=== PATIENT | female | born 1955 | race American Indian/Alaskan Native ===

== ENCOUNTER 2016-03-07 10:32 | Outpatient (CLI) | payer MEDICARE ==
--- NOTE | 2016-03-07 12:17 | Mammography Report ---
LEFT DIGITAL DIAGNOSTIC MAMMOGRAM: 03/07/16 10:32:00 CLINICAL: For clip placement immediately status post ultrasound biopsy. COMPARISON:02/22/16 FINDINGS: A biopsy clip is now identified within the mass at 7:30 o'clock far posterior near the chest wall. IMPRESSION: Concordant clip placement status post ultrasound biopsy. BI-RADS CATEGORY: 4--Suspicious Pathology pending.
--- NOTE | 2016-03-07 13:56 | Ultrasound Report ---
ULTRASOUND GUIDED NEEDLE CORE BIOPSY LEFT BREAST WITH CLIP PLACEMENT: 03/07/16 CLINICAL: Left breast mass. COMPARISON :02/22/16 FINDINGS: The procedure was explained to the patient and informed consent was obtained. Ultrasound demonstrated the previously described mass at 7:30 o'clock near the chest wall.. I marked the breast with a felt tip marker and a time out was called. The skin was prepped with Betadine and anesthetized with 1% lidocaine. Needle core biopsy was performed through a tiny dermatotomy using ultrasound guidance, 2% lidocaine with epinephrine for deep anesthesia and a 14-gauge Achieve biopsy device. Imaging demonstrated satisfactory sampling. Four cores were obtained and placed in formalin. A clip was then placed within the mass. The patient tolerated the procedure well and there were no apparent complications. Hemostasis was achieved with gentle pressure and a sterile dressing was applied. A two view mammogram demonstrated satisfactory placement of the clip. She left the department in good condition and was given instructions for wound care and followup. IMPRESSION: Uncomplicated ultrasound guided needle core biopsy with clip placement left breast.
== END 2016-03-07 10:33 | disposition home or self-care (01) ==
LOC: SPVWC 10:32
PROVIDERS: ATTEND Hospitalist
DX: N63 Unspecified lump in breast (principal)
CPT/HCPCS: 19083; 88305; 88361; A4648; G0206

== ENCOUNTER 2016-04-17 07:45 | Outpatient (CLI) | payer MEDICARE | END 2016-04-17 07:46 | disposition home or self-care (01) | LOC: LABHHL 07:45 | PROVIDERS: ATTEND Surgery | DX: D36.0 Benign neoplasm of lymph nodes (principal) | CPT/HCPCS: 88305; 88361 ==

== ENCOUNTER 2016-05-02 07:03 | Outpatient (CLI) | payer MEDICARE ==
--- NOTE | 2016-05-02 15:56 | PET Report ---
PET/CT:05/02/16 07:03:00 CLINICAL: Newly diagnosed right breast cancer. RADIOPHARMACEUTICAL: 14.1 tomCi F18-FDG. COMPARISON: MRI Breast Bilateral 05/01/16 TECHNIQUE- Following intravenous injection of F-18 FDG and an approximately 60 minute uptake period, CT and PET images from the mid skull to the upper thighs were acquired with the patient in the fasted state. No contrast was administered. The CT protocol used for this PET CT study is designed for attenuation correction and anatomic localization of PET abnormalities. This contract implementation analyst CT is not desired to produce and cannot replace, [id number]-li-svm-art diagnostic CT scans with specific imaging protocols for different body parts and indications. Plasma glucose at the time of this test: 182g/dl. The standardized uptake values (SUV) are normalized to patient body weight and indicate the highest activity concentration (SUV max) in a given disease site. FINDINGS: Brain--Physiologic FDG uptake in the visualized regions of the brain. Neck--Physiologic FDG uptake . Chest--Physiologic FDG uptake in mediastinal blood pool and myocardium. a 3 cm FDG avid lower inner left breast mass with SUV 7.6. No other abnormal FDG uptake in the left breast. Lungs--No abnormal uptake. No pulmonary nodule or mass. Pleura/pericardium--No abnormal uptake. Thoracic nodes--No abnormal uptake. A 1.5 cm left axillary lymph node corresponds to the previously diagnosed metastatic lymph node that demonstrates minimal FDG uptake. Hepatobiliary--No abnormal uptake. Liver background SUV mean, as a reference for comparing FDG studies, is 4.8 . No liver mass. Spleen--No abnormal uptake. Pancreas--No abnormal uptake. Adrenal Glands--No abnormal uptake. Kidneys/Ureters/Bladder--No abnormal uptake. Abdominopelvic Nodes--No abnormal uptake. Bowel/Peritoneum/Mesentery--No abnormal uptake. No suspicious bone lesions. Pelvic organs--No abnormal uptake. Bones/Soft Tissues--No abnormal uptake. IMPRESSION- A 3 cm FDG avid left breast cancer and one biopsy-proven left axillary metastatic lymph node. No other disease is identified.
== END 2016-05-02 07:04 | disposition home or self-care (01) ==
LOC: PET 07:03
PROVIDERS: ATTEND Surgery
DX: C77.3 Secondary and unspecified malignant neoplasm of axilla and upper limb lymph nodes (principal); C50.411 Malignant neoplasm of upper-outer quadrant of right female breast; C50.312 Malignant neoplasm of lower-inner quadrant of left female breast
CPT/HCPCS: 78815; 82962; A9552

== ENCOUNTER 2016-10-29 09:51 | Outpatient (CLI) | payer MEDICARE ==
--- NOTE | 2016-10-29 10:33 | Mammography Report ---
LEFT DIGITAL DIAGNOSTIC MAMMOGRAM : 10/29/16 09:51:00 CLINICAL: Known breast cancer. Followup after chemotherapy. COMPARISON:09/22/15 and 03/07/16 FINDINGS: 1.3 cm irregular asymmetry is identified at the clip and known cancer in the posterior inner breast on the CC view.No mass or asymmetry is associated with a clip on the MLO view. IMPRESSION: Partial response to chemotherapy with near complete resolution of mass. BI-RADS CATEGORY: 6--Known Cancer ACR BI-RADS MAMMOGRAPHIC CODES: 0 = Needs additional imaging evaluation; 1 = Negative; 2 = Benign; 3 = Probably benign; 4 = Suspicious; 5 = Malignant; 6 = Known biopsy-proven malignancy COMMENT: 1. Dense breast tissue, i.e., adenosis, fibrocystic changes, etc., may obscure an underlying neoplasm. 2. Approximately 10% of cancers are not detected with mammography. 3. A negative mammography report should not delay biopsy if a clinically suspicious mass is present. COMMENT: Patient follow-up letters are generated by our [employer] application.
== END 2016-10-29 09:52 | disposition home or self-care (01) ==
LOC: SPVWC 09:51
PROVIDERS: ATTEND Surgery
DX: C50.312 Malignant neoplasm of lower-inner quadrant of left female breast (principal)
CPT/HCPCS: G0206-LT

== ENCOUNTER 2016-11-13 10:48 | Observation (INO) | payer MEDICARE ==
--- NOTE | 2016-11-13 09:25 | Operative Report ---
Operative Report Operative Report: Date of Service:November 13, 2016 Preoperative diagnosis: Left breast cancer of the lower inner quadrant Postoperative diagnosis: Same Procedure: Right total mastectomy; left total mastectomy with SLNB Surgeon: Tamiko Huertas MD [facility] Reverse Winder: Dr. Garza Anesthesia: General Findings: Radiograph specimen with left breast clip present; 2 SLNS identified and negative for malignancy Complications: None EBL: less than 50 cc Specimens: Right total mastectomy and left total mastectomy with SLNsx2 Disposition: PACU in good condition Indications for operative procedure: This is a 61-year-old lady with stage II left breast cancer of the lower inner quadrant. Patient recently completed neoadjuvant chemotherapy. Recommendations were to proceed with a partial mastectomy for left breast cancer and she wished to proceed with a bilateral total mastectomy. Patient with known left axillary toribio metastasis at the time of her diagnosis. Patient understood the possibility of proceeding with a lymph node dissection. Patient wished to proceed with a prophylactic right total mastectomy as well. Patient declined plastic reconstructive surgery. Procedure in detail: Anesthesia placed bilateral pectoral muscle block. Patient was taken to the operating room and was laid supine. General anesthesia was administered. Left nipple was injected with radioiosotope and methlene blue dye mixed with saline. Bilateral chest were prepped and draped in the normal sterile operative fashion. Gamma probed was inserted into the axilla for identification of sentinel lymph node biopsy. Mastectomy markings were made bilaterally. Attention was first taken towards the right breast, a skin incision was made with a 10 blade knife through the skin taken down to the subcutaneous tissues. First began with raising of the superior flap to the level of the clavicle and posteriorly to the pectoralis muscle, follwed by raising of the medial flap to the level of the sternum taking down posteriorly to pectoralis muscle, followed by raising of the lateral flap to the level of the latissimus dorsi muscle taken down posteriorly, then followed by raising of the inferior flap to the level of the inframmammary fold taken down posteriorly to the pectoralis muscle. The breast was then removed from the pectoralis muscle with the aid of the Bovie cautery. Hemostasis was obtained. Chest wall cavity was irrigated and suctioned. 19 Sinhala FÁTIMA drain placed. The subcutaneous tissues were brought together and closed with interrupted 3-0 Vicryl and the skin closed with a running 4-0 Monocryl followed by skin affix. Attention was then taken towards the left breast. A skin incision was made with a 10 blade knife through the skin taken down to the subcutaneous tissues. First began with raising of the superior flap to the level of the clavicle and posteriorly to the pectoralis muscle, follwed by raising of the medial flap to the level of the sternum taking down posteriorly to pectoralis muscle, followed by raising of the lateral flap to the level of the latissimus dorsi muscle taken down posteriorly. Gamma probed was inserted into the axilla, the area of SLN location was identified, the axillary fascia was opened and 2 SLNs were idenfied. Remaining counts were less than 10%. Radiograph specimen of SLNs with one clip present. Frozen section of SLNs findings negative for malignancy, reactive lymph node present. Then coninued with raising of the inferior flap to the level of the inframmammary fold taken down posteriorly to the pectoralis muscle. The breast was then removed from the pectoralis muscle with the aid of the Bovie cautery. Radiograph specimen of left mastectomy with clip present. Hemostasis was noted. Chest wall was irrigated and suctioned. 19 Sinhala FÁTIMA drain placed. The subcutaneous tissues were brought together and closed with interrupted 3-0 Vicryl and the skin closed with a running 4-0 Monocryl followed by skin affix.
[~2016-11-13 10:48] MED LIST: ANCEF/STERILE WATER 2 GM/20 ML IV NR
[2016-11-13] MEDS ORDERED: MARCAINE 0.25% INFILTRATI ONE (11:25)
[2016-11-13] MEDS ORDERED: DECADRON ONE ×2 (11:25→13:52)
[2016-11-13 12:24] LABS: Basophils % (Auto) 0.7 % (0.0-1.8); Eosinophils % (Auto) 4.3 % (0.0-4.3); Hematocrit 35.6 % (30.3-42.9); Hemoglobin 11.5 gm/dl (10.1-14.3); Mean Corpuscular HGB Conc 32 % (30-34); Mean Corpuscular Hemoglobin 27 pg (28-32); Mean Corpuscular Volume 82 fl (79-97); Platelet Count 333 K/mm3 (140-440); Red Blood Count 4.33 M/mm3 (3.65-5.03); Red Cell Distribution Width 15.6 % (13.2-15.2); White Blood Count 7.5 K/mm3 (4.5-11.0)
[2016-11-13] MEDS ORDERED: SUBLIMAZE IV SCH (12:25)
[2016-11-13] MEDS ORDERED: DILAUDID IV PRN (12:26)
[2016-11-13] MEDS ORDERED: ZOFRAN IV PRN ×2 (12:26→19:54)
[2016-11-13 12:36] LABS: BUN/Creatinine Ratio 21.25; Blood Urea Nitrogen 17 mg/dL (7-17); Calcium 9.2 mg/dL (8.4-10.2); Carbon Dioxide 25 mmol/L (22-30); Chloride 97.8 mmol/L (98-107); Glucose 194 mg/dL (65-100); Sodium 138 mmol/L (137-145)
[2016-11-13 12:40] LABS: Anion Gap 20 mmol/L; Potassium 5.2 mmol/L (3.6-5.0)
[2016-11-13] MEDS ORDERED: NACL 0.9% 1000 ML 1,000 ML IV SCH (13:00)
[2016-11-13] MEDS ORDERED: VERSED IV NR (13:00)
[2016-11-13] MEDS ORDERED: PEPCID PO NR (13:00)
[2016-11-13] MEDS ORDERED: NEURONTIN PO NR (13:00)
[2016-11-13] MEDS ORDERED: MARCAINE 0.5% 30 ML INFILTRATI ONE (13:52)
--- NOTE | 2016-11-13 13:56 | Anesthesia Day of Surgery ---
Anesthesia Day of Surgery - Day of Surgery Patient Examined: Yes Patient H&P Reviewed: Yes Patient is NPO: Yes Beta Blockers: Yes
--- NOTE | 2016-11-13 13:57 | Anesthesia Consultation ---
Anesthesia Consult and Med Hx Date of service: 11/13/16 - Airway Anesthetic Teeth Evaluation: Poor, Chipped (bottom teeth) ROM Head & Neck: Adequate Mental/Hyoid Distance: Adequate Mallampati Class: Class II Intubation Access Assessment: Probably Good - Pulmonary Exam CTA: Yes - Cardiac Exam Cardiac Exam: RRR - Pre-Operative Health Status ASA Pre-Surgery Classification: ASA3 Proposed Anesthetic Plan: General Nerve Block: PEC - Pulmonary Hx Smoking: Yes (STOPPED X 8 YRS- 1 1/2 PPD X 25 YRS) COPD: Yes (RARE INHALER USE) Home Oxygen Therapy: No Hx Sleep Apnea: No (KESHIA PRE SCREEN HIGH RISK) - Cardiovascular System Hx Hypertension: Yes (X 6 YRS, HISTORY OF CHF) Hx Heart Attack/AMI: Yes (MILD, 2006) - Central Nervous System Hx Seizures: No CVA: No - Endocrine Hx Renal Disease: No Hx Liver Disease: No Hx Non-Insulin Dependent Diabetes: Yes Hx Hypothyroidism: No - Other Systems Hx Cancer: Yes (BREAST) Hx Obesity: Yes (MORBID)
[2016-11-13] MEDS ORDERED: DILAUDID ONE (16:31)
[2016-11-13] MEDS ORDERED: DIPRIVAN 10 MG/ML IV ONE (16:31)
[2016-11-13] MEDS ORDERED: XYLOCAINE MPF 2% ONE (16:32)
[2016-11-13] MEDS ORDERED: NACL 0.9% 1000 ML 0 ML ONE (16:40)
[2016-11-13] MEDS ORDERED: METHYLENE BLUE ONE (17:29)
[2016-11-13] MEDS ORDERED: NACL P/F VIAL (10 ML) 10 ML ONE (17:29)
[2016-11-13] MEDS ORDERED: METHYLENE BLUE IV ONE (18:27)
[2016-11-13] MEDS ORDERED: NACL P/F VIAL (10 ML) IV ONE (18:29)
[2016-11-13] MEDS ORDERED: REGLAN PO PRN (19:54)
[2016-11-13] MEDS ORDERED: TYLENOL PO PRN (19:54)
[2016-11-13] MEDS ORDERED: PERCOCET 5/325 PO PRN (19:54)
[2016-11-13] MEDS ORDERED: SODIUM CHLORIDE FLUSH SYRINGE 10 ML IV PRN (19:54)
[2016-11-13] MEDS ORDERED: ZOFRAN ONE (19:56)
[2016-11-13] MEDS ORDERED: REGLAN ONE (19:57)
[2016-11-13] MEDS ORDERED: LACTATED RINGERS 1,000 ML IV SCH (20:00)
[2016-11-13] MEDS ORDERED: D50W (25GM) Syringe IV PRN (20:00)
[2016-11-13] MEDS ORDERED: NACL 0.9% 1000 ML 1,000 ML ONE (20:08)
[2016-11-13] MEDS ORDERED: LACTATED RINGERS 1,000 ML ONE (20:08)
--- NOTE | 2016-11-13 20:47 | Post Anesthesia Evaluation ---
- Post Anesthesia Evaluation Patient Participated: Yes Airway Patent: Yes Stable Respiratory Function: Yes Nausea/Vomiting: No Temp > 96.8F: Yes Pain Manageable: Yes Adequeate Hydration: Yes Anesthesia Complications: No
[2016-11-13] MEDS ORDERED: COLACE PO SCH (22:00)
[2016-11-14] MEDS ORDERED: NOVOLOG SUB-Q SCH
--- NOTE | 2016-11-14 08:54 | XRay Report ---
Specimen radiograph. Findings: A single specimen radiograph confirms the presence of a biopsy clip within the specimen.
[2016-11-14] MEDS ORDERED: PNEUMOVAX 23 IM ONE (12:00)
[2016-11-14 13:49] VITALS: BP 95/63
--- NOTE | 2016-11-15 15:43 | XRay Report ---
Radiograph of surgical specimen: History: Breast cancer. Findings: There is a biopsy clip identified within the surgical specimen. Impression: Findings as described.
== END 2016-11-14 12:15 | disposition home or self-care (01) ==
LOC: OR 10:48 → OB 19:54
PROVIDERS: ADMIT Surgery; ATTEND Surgery
DX: C50.312 Malignant neoplasm of lower-inner quadrant of left female breast (principal); I10 Essential (primary) hypertension; J44.9 Chronic obstructive pulmonary disease, unspecified; I25.2 Old myocardial infarction; E11.9 Type 2 diabetes mellitus without complications; Z87.891 Personal history of nicotine dependence; Z79.891 Long term (current) use of opiate analgesic
CPT/HCPCS: 19303; 36415; 38525; 64450; 76098; 78800; 80048; 82962; 85025; 88307; 88309; 88331; 88333; 88342; 90732; 96372; 96374; 96375; A9541; G0378; J0690; J1100; J1170; J2250; J2405; J2704; J2765; J3010; J7030; J7120; Q9968; J1815

== ENCOUNTER 2016-11-29 01:37 | Emergency (ER) | payer MEDICARE ==
[2016-11-29] MEDS ORDERED: NACL 0.9% 500 ML 500 ML IV ONE (02:00)
[2016-11-29] MEDS ORDERED: VANCOMYCIN/NS 1 GM/250 ML 1 GM/250 ML BAG IV ONE (02:17)
[2016-11-29 03:09] LABS: Basophils % (Auto) 0.3 % (0.0-1.8); Eosinophils % (Auto) 4.3 % (0.0-4.3); Hematocrit 22.6 % (30.3-42.9); Hemoglobin 7.4 gm/dl (10.1-14.3); Mean Corpuscular HGB Conc 33 % (30-34); Mean Corpuscular Hemoglobin 26 pg (28-32); Mean Corpuscular Volume 80 fl (79-97); Platelet Count 509 K/mm3 (140-440); Red Blood Count 2.82 M/mm3 (3.65-5.03); Red Cell Distribution Width 16.6 % (13.2-15.2); White Blood Count 8.9 K/mm3 (4.5-11.0)
[2016-11-29 03:14] LABS: INR 0.93 (0.87-1.13)
[2016-11-29] MEDS ORDERED: TYLENOL PO ONE (03:14)
--- NOTE | 2016-11-29 03:31 | Emergency Department Report ---
HPI - General Chief Complaint: Fever Time Seen by Provider: 11/29/16 02:11 - HPI HPI: This is a 61-year-old female presents to the emergency department with complaint of some bleeding from a left mastectomy incision upon waking up this evening. She has a history of bilateral mastectomy done on 11/[address] Huertas. She came in through triage, brought in by her daughter, and was found to have a low-grade fever and elevated heart rate. The patient did not think that she was febrile but does admit that she has been feeling very cold recently. They called the surgeon and were told to come to the emergency department for further evaluation. The patient did not take anything for her symptoms prior to presentation. She also has a history of CHF, COPD, diabetes, GERD, coronary artery disease with DE in 2005, hypertension. No recent travel or sick contacts at home. ED Past Medical Hx - Past Medical History Previous Medical History?: Yes Hx Hypertension: Yes (X 6 YRS, HISTORY OF CHF) Hx Heart Attack/AMI: Yes (MILD, 2005) Hx Congestive Heart Failure: Yes (2007) Hx Diabetes: Yes Hx GERD: Yes Hx Liver Disease: No Hx Renal Disease: No Hx Seizures: No Hx Asthma: No Hx COPD: Yes (RARE INHALER USE) - Surgical History Past Surgical History?: Yes Hx Cholecystectomy: Yes Hx Breast Surgery: Yes (BREAST BX) - Social History Smoking Status: Never Smoker Substance Use Type: None - Medications Home Medications: Home Medications Medication Instructions Recorded Confirmed Last Taken Type Aspirin [Aspirin TAB] 325 mg PO QDAY 11/13/16 11/13/16 11/12/16 History Furosemide [Lasix] 20 mg PO QDAY 11/13/16 11/13/16 11/13/16 07:30 History Glimepiride [Glimepiride] 4 mg PO QDAY 11/13/16 11/13/16 11/12/16 History HYDROcodone/APAP 5-325 [Sentinel 1 each PO Q6HR PRN #30 tablet 11/13/16 Unknown Rx 5/325] Lisinopril [Zestril] 40 mg PO QDAY 11/13/16 11/13/16 11/13/16 07:30 History Metformin HCl [Glucophage] 1,000 mg PO BID 11/13/16 11/13/16 11/12/16 History Metoprolol Xl [Metoprolol 100 mg PO QDAY 11/13/16 11/13/16 11/13/16 07:30 History SUCCINATE ER TAB] Simvastatin [Simvastatin] 20 mg PO QDAY 11/13/16 11/13/16 11/12/16 History amLODIPine [Norvasc] 10 mg PO DAILY 11/13/16 11/13/16 11/13/16 07:30 History Clindamycin [Clindamycin CAP] 300 mg PO Q6H #28 capsule 11/29/16 Unknown Rx ED Review of Systems ROS: Stated complaint: BLEEDING FROM SURGERY Other details as noted in HPI Comment: All other systems reviewed and negative Constitutional: chills. denies: weakness Eyes: denies: eye pain, eye discharge, vision change ENT: denies: ear pain, throat pain Respiratory: denies: cough, shortness of breath, wheezing Cardiovascular: denies: chest pain, palpitations Gastrointestinal: denies: abdominal pain, nausea, diarrhea Genitourinary: denies: urgency, dysuria, discharge Musculoskeletal: denies: back pain, joint swelling, arthralgia Skin: change in color. denies: rash Neurological: denies: headache, weakness, paresthesias Physical Exam - Physical Exam Vital Signs: Vital Signs 11/29/16 01:37 Temperature 100.8 F H Pulse Rate 110 H Respiratory 24 Rate Blood Pressure 156/54 [Right] O2 Sat by Pulse 95 Oximetry Physical Exam: GENERAL: The patient is well-developed well-nourished. HENT: Normocephalic. Atraumatic. Patient has moist mucous membranes. EYES: Extraocular motions are intact. Pupils equal reactive to light bilaterally. NECK: Supple. Trachea is midline. CHEST/LUNGS: Clear to auscultation. There is no respiratory distress noted. There are bilateral chest drains coming out from the anterior chest wall. HEART/CARDIOVASCULAR: Regular. There is no tachycardia. There is no gallop rub or murmur. ABDOMEN: Abdomen is soft, nontender. Patient has normal bowel sounds. There is no abdominal distention. SKIN: There are bilateral breast / chest incisional wounds from her mastectomy. The left sided incision does not appear to show any type of dehiscence and there is no current bleeding or purulent discharge. However there is some mild swelling along the incision site and there is some erythema. NEURO: The patient is awake, alert, and oriented. The patient is cooperative. The patient has no focal neurologic deficits. The patient has normal speech. MUSCULOSKELETAL: There is no tenderness or deformity. There is no limitation range of motion. There is no evidence of acute injury. ED Course Vital Signs 11/29/16 01:37 Temperature 100.8 F H Pulse Rate 110 H Respiratory 24 Rate Blood Pressure 156/54 [Right] O2 Sat by Pulse 95 Oximetry - Consultations Consultation #1: I spoke to the surgeon, Dr. Huertas, when the patient first arrived to let her know of possible left-sided incisional cellulitis. She said that she is happy to see the patient in the hospital if the patient requires admission or otherwise she will see the patient at 9 AM in the [place] office. She recommended clindamycin 300 mg every 6 hours if the patient is discharged. I later spoke to Dr. Huertas again and let her know of the patient's anemia, hypokalemia but improvement in the fever and tachycardia and the plan to discharge home with clindamycin to follow up with her at 9 AM this morning. 11/29/16 05:48 ED Medical Decision Making - Lab Data Result diagrams: 11/29/16 02:28 11/29/16 04:29 - EKG Data -: EKG Interpreted by Me EKG shows normal: sinus rhythm, axis (left axis deviation), intervals (the bundle-branch block), QRS complexes, ST-T waves Rate: tachycardia (103 bpm) - EKG Data When compared to previous EKG there are: previous EKG unavailable Interpretation: other (left bundle branch block) - Radiology Data Radiology results: image reviewed interpreted by me: Chest x-ray does not show any obvious pneumonia, pleural effusions or pneumothorax. - Medical Decision Making 61-year-old female presents two-week status post bilateral mastectomy with some bleeding from the left side incision. She denies any chest pain, shortness of breath. However she presents with some low-grade fever and tachycardia. Patient was given Tylenol for her fever. The labs show some anemia with hemoglobin 7.4 but the patient only had a hemoglobin of 9 around the time that she had surgery and she has to just drains in. She has some hypokalemia that was replaced with potassium chloride. She was reevaluated multiple times about 4 hours and is feeling improved. There is been no further bleeding from the incision. Patient is asking to be discharged home. She will be discharged with clindamycin, encouragement to use Tylenol and/or ibuprofen for fever and is following up with the surgeon in a few hours at 9 AM. She will return to the ER with any worsening of her symptoms or any acute distress. - Differential Diagnosis sepsis, cellulitis, abscess Critical Care Time: No Critical care attestation.: If time is entered above; I have spent that time in minutes in the direct care of this critically ill patient, excluding procedure time. ED Disposition Clinical Impression: History of bilateral mastectomy, Hypokalemia Post op infection Qualifiers: Encounter type: initial encounter Qualified Code(s): T81.4XXA - Infection following a procedure, initial encounter Fever Qualifiers: Fever type: unspecified Qualified Code(s): R50.9 - Fever, unspecified Hypertension Qualifiers: Hypertension type: essential hypertension Qualified Code(s): I10 - Essential ( primary) hypertension Anemia Qualifiers: Anemia type: unspecified type Qualified Code(s): D64.9 - Anemia, unspecified Disposition: DC-01 TO HOME OR SELFCARE Is pt being admited?: No Condition: Stable Instructions: Iron Rich Diet (ED), Fever in Adults (ED), Hypokalemia (ED), Hypertension (ED), Anemia (ED) Additional Instructions: Please follow up with Dr. Huertas today at 9 AM at her [facility] without fail. Return to the emergency Department with any worsening of your symptoms are any acute distress. Prescriptions: Clindamycin [Clindamycin CAP] 300 mg PO Q6H #28 capsule Referrals: YESICA HUERTAS MD [Staff Physician] - 11/29/16 9:00 am (At [facility]) Time of Disposition: 05:36
[2016-11-29 05:04] LABS: Alanine Aminotransferase 12 units/L (7-56); Albumin 2.8 g/dL (3.9-5); Albumin/Globulin Ratio 0.7 %; Alkaline Phosphatase 70 units/L (35-129); Anion Gap 18 mmol/L; BUN/Creatinine Ratio 16; Blood Urea Nitrogen 11 mg/dL (7-17); Calcium 7.1 mg/dL (8.4-10.2); Carbon Dioxide 27 mmol/L (22-30); Chloride 97.9 mmol/L (98-107); Glucose 190 mg/dL (65-100); Sodium 140 mmol/L (137-145); Total Protein 6.7 g/dL (6.3-8.2)
[2016-11-29 05:07] LABS: Potassium 2.9 mmol/L (3.6-5.0)
[2016-11-29] MEDS ORDERED: K-DUR PO ONE (05:18)
[2016-11-29] MEDS ORDERED: FLUSH HEPARIN IV ONE ×2 (05:47→05:49)
[2016-11-29 05:52] VITALS: BP 145/76
--- NOTE | 2016-11-29 07:54 | XRay Report ---
AP CHEST: HISTORY: Sepsis No comparison. Moderate cardiomegaly and mild pulmonary venous congestion are identified. The lungs are generally clear. No evidence for pneumonia, CHF or pneumothorax. Right [id number] is in good position. IMPRESSION: Cardiomegaly and pulmonary venous congestion but no evidence for CHF.
== END 2016-11-29 05:51 | disposition home or self-care (01) ==
LOC: ED 01:37
DX: T81.4XXA Infection following a procedure, initial encounter (principal); R50.9 Fever, unspecified; I10 Essential (primary) hypertension; D64.9 Anemia, unspecified; E87.6 Hypokalemia; I25.2 Old myocardial infarction; I50.9 Heart failure, unspecified; E11.9 Type 2 diabetes mellitus without complications; K21.9 Gastro-esophageal reflux disease without esophagitis; J44.9 Chronic obstructive pulmonary disease, unspecified; Z90.49 Acquired absence of other specified parts of digestive tract; Z90.13 Acquired absence of bilateral breasts and nipples; Z79.82 Long term (current) use of aspirin
CPT/HCPCS: 36415; 71010; 80053; 82140; 82805; 85025; 85610; 86403; 87040; 87186; 93005; 93010; 96365; 99284; J1642; J3370; J7040

== ENCOUNTER 2016-12-01 07:26 | Observation (INO) | payer MEDICARE ==
[2016-12-01 08:34] LABS: Basophils % (Auto) 0.6 % (0.0-1.8); Eosinophils % (Auto) 7.5 % (0.0-4.3); Hemoglobin 7.4 gm/dl (10.1-14.3); Mean Corpuscular HGB Conc 32 % (30-34); Mean Corpuscular Volume 80 fl (79-97); Platelet Count 622 K/mm3 (140-440); Red Blood Count 2.88 M/mm3 (3.65-5.03); Red Cell Distribution Width 17.3 % (13.2-15.2); White Blood Count 6.2 K/mm3 (4.5-11.0)
[2016-12-01 08:35] LABS: Mean Corpuscular Hemoglobin 26 pg (28-32)
[2016-12-01 08:44] LABS: INR 0.94 (0.87-1.13); Partial Thromboplastin Time 32.6 Sec. (24.2-36.6)
[2016-12-01 08:46] LABS: Anion Gap 20 mmol/L; BUN/Creatinine Ratio 12; Blood Urea Nitrogen 7 mg/dL (7-17); Calcium 7.9 mg/dL (8.4-10.2); Carbon Dioxide 28 mmol/L (22-30); Chloride 97.8 mmol/L (98-107); Glucose 151 mg/dL (65-100); Potassium 3.3 mmol/L (3.6-5.0); Sodium 142 mmol/L (137-145)
[2016-12-01] MEDS ORDERED: SODIUM CHLORIDE FLUSH SYRINGE 10 ML IV PRN (08:49)
[2016-12-01] MEDS ORDERED: KCL 10MEQ/100ML 10 MEQ/100 ML BAG IV SCH (09:00)
[2016-12-01] MEDS ORDERED: LACTATED RINGERS 1,000 ML IV SCH ×2 (09:00→14:00)
[2016-12-01] MEDS ORDERED: COLACE PO SCH (10:00)
[2016-12-01] MEDS ORDERED: D50W (25GM) Syringe IV PRN (10:25)
--- NOTE | 2016-12-01 10:39 | History and Physical Report ---
History of Present Illness Date of examination: 12/01/16 Date of admission: 12/01/16 08:49 Chief complaint: Post operative seroma History of present illness: This is a 61 year old lady s/p bilateral total mastectomy and left SLNB on 11/13 for Stage II left breast cancer. Patient seen this am in the ER with findings of left chest wall postoperative seroma. Patient was seen in the office on Friday morning with left chest wall NELA bandage applied and patient reports drainage from left chest since yesterday evening. Hemoglobin with no change from Friday morning when seen in the ER. Past History Past Medical History: CAD, diabetes, other (left breast cancer) Past Surgical History: Other (bilateral total mastectomy and left SLNB 11/13/16) Social history: no significant social history Family history: no significant family history Medications and Allergies Allergies Allergy/AdvReac Type Severity Reaction Status Date / Time diphenhydramine HCl AdvReac Itching Verified 11/06/16 18:15 [From [facility]] Home Medications Medication Instructions Recorded Confirmed Last Taken Type Aspirin [Aspirin TAB] 325 mg PO QDAY 11/13/16 11/13/16 11/12/16 History Furosemide [Lasix] 20 mg PO QDAY 11/13/16 11/13/16 11/13/16 07:30 History Glimepiride [Glimepiride] 4 mg PO QDAY 11/13/16 11/13/16 11/12/16 History HYDROcodone/APAP 5-325 [[place] 1 each PO Q6HR PRN #30 tablet 11/13/16 Unknown Rx 5/325] Lisinopril [Zestril] 40 mg PO QDAY 11/13/16 11/13/16 11/13/16 07:30 History Metformin HCl [Glucophage] 1,000 mg PO BID 11/13/16 11/13/16 11/12/16 History Metoprolol Xl [Metoprolol 100 mg PO QDAY 11/13/16 11/13/16 11/13/16 07:30 History SUCCINATE ER TAB] Simvastatin [Simvastatin] 20 mg PO QDAY 11/13/16 11/13/16 11/12/16 History amLODIPine [Norvasc] 10 mg PO DAILY 11/13/16 11/13/16 11/13/16 07:30 History Clindamycin [Clindamycin CAP] 300 mg PO Q6H #28 capsule 11/29/16 Unknown Rx Active Meds: Active Medications Dextrose (D50w (25gm) Syringe) 50 ml IV PRN PRN PRN Reason: Hypoglycemia Ferrous Sulfate (Ferrous Sulfate) 300 mg PO QDAY SAWYER Lactated Ringer's (Lactated Ringers) 1,000 mls @ 125 mls/hr IV DIRECT SAWYER Potassium Chloride (Kcl 10meq/100ml) 10 meq in 100 mls @ 100 mls/hr IV Q1H SAWYER Stop: 12/01/16 10:59 Insulin Aspart (Novolog) 0 units SUB-Q Q6HR SAWYER PRN Reason: Protocol Sodium Chloride (Sodium Chloride Flush Syringe 10 Ml) 10 ml IV PRN PRN PRN Reason: LINE FLUSH Review of Systems All systems: negative - Breasts left: other (left chest wall drainage from incision) other (bilateral mastectomies) Exam Vital Signs Temp Pulse Resp BP Pulse Ox 98.2 F 83 16 145/56 96 12/01/16 07:58 12/01/16 07:58 12/01/16 07:58 12/01/16 07:58 12/01/16 07:58 - General physical appearance Positive: well developed, well nourished - Eyes Positive: PERRL, normal occular movement - ENT Positive: normal pinna, normal nares, normal mucosa, no hearing loss, no congestion - Neck Positive: no masses, no bruits, trachea midline, no lymphadectomy, no venous distension - Respiratory Positive: normal expansion, normal respiratory effort, clear to percussion, clear to auscultation - Cardiovascular Rhythm: regular - Extremities Extremities: no ischemia, pulses intact, pulses symmetrical, No edema, normal temperature, normal color, Full ROM Peripheral Pulses: within normal limits - Breasts Breasts: other (right chest incision intact and healing well; left chest with mild erythema-improvement, serosanginous seroma drainage from lateral incision opeing of less than 1 cm; FÁTIMA drain to bulb suction) - Abdomen Abdomen: Present: soft - Genitourinary Female Genitourinary: deferred - Integumentary no rash, no growths, no abnormal pigmentation - Neurologic Neurologic: alert and oriented to time, place and person, motor strength and sensation are grossly intact, CN II-XII intact - Musculoskeletal normal gait, normal posture - Psychiatric Psychiatric: appropriate mood/affect, intact judgment & insight, memory intact, cooperative Results - Labs 12/01/16 08:08 12/01/16 08:08 Assessment and Plan This is a 61 year old lady with history of stage II left breast cancer presenting with complicated left chest wall postoperative seroma. Physical exam of typical postoperative seroma with history of clogged left chest wall FÁTIMA drain. Will admit for observation. H/H stable with no change from Friday morning of 7.4 and no concerns for active bleeding given no change. Will start patient on iron supplements and no transfusion given normal blood pressure and no tachycardia-patient asymptomatic and discussed this with Dr. Gambino on Friday as well how agreed at that time. NELA bandage applied to left chest and will keep in place for now. FÁTIMA drain stripped and remain at bulb suction. Will replace K, 3.3. - Patient Problems (1) Hypokalemia Current Visit: Yes Status: Acute Plan to address problem: replace K (2) Breast cancer Current Visit: Yes Status: Acute Qualifiers: Breast location: lower inner quadrant of breast Estrogen receptor status: negative Patient sex: female Laterality: left Qualified Code(s): C50.312 - Malignant neoplasm of lower-inner quadrant of left female breast; Z17.1 - Estrogen receptor negative status [ER-]; Z17.1 - Estrogen receptor negative status [ER-] Plan to address problem: admit for complicate postoperative seroma (3) Hypokalemia Current Visit: Yes Status: Acute Plan to address problem: replace K (4) Diabetes mellitus Current Visit: Yes Status: Chronic Qualifiers: Diabetes mellitus type: type 2 Diabetes mellitus complication status: with hyperglycemia Diabetes mellitus complication detail: D Diabetic retinopathy severity: D Proliferative retinopathy type: P Diabetes mellitus macular edema: D Diabetes mellitus snf insulin use: with snf use Laterality: L Chronic kidney disease stage: C Qualified Code(s): E11.65 - Type 2 diabetes mellitus with hyperglycemia; Z79.4 - USP (current) use of insulin; Z79.4 - intermodal truck driver (current) use of insulin; Z79.4 - intermodal truck driver (current ) use of insulin; Z79.4 - intermodal truck driver (current) use of insulin
[2016-12-01] MEDS ORDERED: K-DUR PO ONE (11:00)
[2016-12-01] MEDS: NOVOLOG SUB-Q SCH ×3 (11:50→23:55)
[2016-12-01] MEDS: FERROUS SULFATE PO SCH (12:05)
[2016-12-01] MEDS ORDERED: NORCO 5/325 PO PRN (13:10)
[2016-12-01] MEDS ORDERED: TYLENOL PO PRN (13:12)
[2016-12-01] MEDS: CLEOCIN PO SCH ×2 (15:31→21:27)
[2016-12-01] MEDS: GLUCOPHAGE PO SCH (18:45)
[2016-12-01] MEDS ORDERED: NON-FORMULARY (Metformin Hcl [Glucophage] 1,000 MG) PO SCH (22:00)
[2016-12-02] MEDS: CLEOCIN PO SCH ×2 (04:08→09:22)
[2016-12-02] MEDS: NOVOLOG SUB-Q SCH (05:34)
--- NOTE | 2016-12-02 06:13 | Progress Note ---
Assessment and Plan This is a 61 year old lady with history of stage II left breast cancer admitted yesterday for complicated left chest wall postoperative seroma. 1. No acute events overnight. 2. Left chest incision with no drainage. Will continue with NELA bandage. 3. D/C planning for today and patient to follow-up tomorrow. 4. Will d/c home with iron supplements as well and patient will follow-up with Dr. Gambino this week. Will discuss with Dr. Gambino as well given persistent hypokalemia most probable given lasix. - Patient Problems (1) Hypokalemia Current Visit: Yes Status: Acute (2) Breast cancer Current Visit: Yes Status: Acute Qualifiers: Breast location: lower inner quadrant of breast Estrogen receptor status: negative Patient sex: female Laterality: left Qualified Code(s): C50.312 - Malignant neoplasm of lower-inner quadrant of left female breast; Z17.1 - Estrogen receptor negative status [ER-]; Z17.1 - Estrogen receptor negative status [ER-] (3) Hypokalemia Current Visit: Yes Status: Acute (4) Diabetes mellitus Current Visit: Yes Status: Chronic Qualifiers: Diabetes mellitus type: type 2 Diabetes mellitus complication status: with hyperglycemia Diabetes mellitus complication detail: D Diabetic retinopathy severity: D Proliferative retinopathy type: P Diabetes mellitus macular edema: D Diabetes mellitus senior living insulin use: with senior living use Laterality: L Chronic kidney disease stage: C Qualified Code(s): E11.65 - Type 2 diabetes mellitus with hyperglycemia; Z79.4 - watermelon inspector (current) use of insulin; Z79.4 - watermelon inspector (current) use of insulin; Z79.4 - prison (current ) use of insulin; Z79.4 - watermelon inspector (current) use of insulin Subjective Date of service: 12/02/16 Principal diagnosis: Left breast cancer s/p bilateral total mastectomies and left SLNB, Stg II Interval history: Patient admitted yesterday for complicated left chest wall postoperative seroma. NELA bandage applied with area clean and dry. Objective - Constitutional Vitals: Vital Signs - 12hr 12/01/16 12/02/16 19:20 00:15 Temperature 99.6 F 98.6 F Pulse Rate 70 77 Respiratory 16 Rate Blood Pressure 129/69 101/67 [Left] General appearance: Present: no acute distress - EENT ENT: hearing intact, clear oral mucosa, poor dentition Ears: bilateral: normal - Neck Neck: supple, normal ROM - Respiratory Respiratory effort: normal Respiratory: bilateral: CTA - Breasts Breasts: other (right chest incision healing well; left chest incision with near resolution of erythema and no drainage; less than a 1 cm skin opening and stable; FÁTIMA drain to bulb suction) - Cardiovascular Rhythm: regular Extremities: no ischemia, pulses intact, pulses symmetrical, No edema, normal temperature, normal color, Full ROM - Gastrointestinal General gastrointestinal: Present: soft, non-tender, non-distended Rectal Exam: deferred - Genitourinary Female genitourinary: deferred - Integumentary Integumentary: clear, warm, dry - Musculoskeletal Musculoskeletal: strength equal bilaterally - Neurologic Neurologic: CNII-XII intact, moves all extremities, gait normal - Psychiatric Psychiatric: appropriate mood/affect, intact judgment & insight, memory intact, cooperative - Labs CBC & Chem 7: 12/01/16 08:08 12/01/16 08:08 Labs: Abnormal lab results 12/01/16 12/01/16 12/01/16 Range/Units 11:38 18:27 23:57 POC Glucose 126 H 203 H 164 H (70-105) 12/02/16 Range/Units 05:32 POC Glucose 200 H (70-105)
[2016-12-02] MEDS: GLUCOPHAGE PO SCH (08:56)
[2016-12-02] MEDS ORDERED: PNEUMOVAX 23 IM ONE (09:00)
[2016-12-02] MEDS: FERROUS SULFATE PO SCH (09:22)
[2016-12-02] MEDS ORDERED: AMARYL PO SCH (10:00)
[2016-12-02 10:19] VITALS: BP 138/70
== END 2016-12-02 10:20 | disposition home or self-care (01) ==
LOC: ED 07:26 → OB 08:49
PROVIDERS: ADMIT Surgery; ATTEND Surgery
DX: C50.312 Malignant neoplasm of lower-inner quadrant of left female breast (principal); E87.6 Hypokalemia; E11.65 Type 2 diabetes mellitus with hyperglycemia; Z79.4 Long term (current) use of insulin; Z17.1 Estrogen receptor negative status [ER-]; Z90.13 Acquired absence of bilateral breasts and nipples; I25.10 Atherosclerotic heart disease of native coronary artery without angina pectoris; Z23 Encounter for immunization
CPT/HCPCS: 36415; 80048; 82962; 85025; 85610; 85730; 87040; 90732; 96360; 96361; G0009; G0378; J7120; 90471; J1815

== ENCOUNTER 2017-07-31 06:30 | Outpatient (CLI) | payer MEDICARE ==
--- NOTE | 2017-07-31 11:28 | PET Report ---
PET/CT:07/31/17 06:30:00 CLINICAL: Breast cancer restaging. RADIOPHARMACEUTICAL: 15.08mCi F18-FDG. COMPARISON: 05/02/16 PET/CT TECHNIQUE- Following intravenous injection of F-18 FDG and an approximately 60 minute uptake period, CT and PET images from the mid skull to the upper thighs were acquired with the patient in the fasted state. No contrast was administered. The CT protocol used for this PET CT study is designed for attenuation correction and anatomic localization of PET abnormalities. This operations label clerk CT is not desired to produce and cannot replace, [id number] diagnostic CT scans with specific imaging protocols for different body parts and indications. Plasma glucose at the time of this test: 190g/dl. The standardized uptake values (SUV) are normalized to patient body weight and indicate the highest activity concentration (SUV max) in a given disease site. FINDINGS: Brain--Physiologic FDG uptake in the visualized regions of the brain. Neck--Physiologic FDG uptake in mucosal structures. Chest--Physiologic FDG uptake in mediastinal blood pool and myocardium. Status post bilateral mastectomy since the last exam. No chest wall mass or abnormal uptake. Lungs--No abnormal uptake. Multilobar bilateral fibrotic changes in the lungs with peripheral honeycombing. This is slightly worse, particularly in the upper lobes when compared to the previous exam. A 6 mm non-FDG avid left lower lobe nodule adjacent to the major fissure is unchanged. A more inferior non-FDG avid 4 mm left lower lobe noncalcified nodule is more evident on this exam than on the last exam. Pleura/pericardium--No abnormal uptake. Thoracic nodes--No abnormal uptake. A 1.7 x 0.8 cm non-FDG avid retrosternal lymph node is unchanged. A new non-FDG avid 1.2 x 0.6 cm AP window lymph node. Small bilateral non-FDG avid axillary lymph nodes. Hepatobiliary--No abnormal uptake. Liver background SUV mean, as a reference for comparing FDG studies, is 3.7 compared to 4.8 on the last exam. No liver mass. Spleen--No abnormal uptake. Pancreas--No abnormal uptake. Adrenal Glands--No abnormal uptake. Kidneys/Ureters/Bladder--No abnormal uptake. Abdominopelvic Nodes--No abnormal uptake. Bowel/Peritoneum/Mesentery--No abnormal uptake. Pelvic organs--No abnormal uptake. Bones/Soft Tissues--No abnormal uptake. No suspicious bone lesion. IMPRESSION- 1. No suspicion for metastatic disease. 2. Multilobar interstitial lung disease which is slightly worse compared to the previous exam. 3. A stable 6 mm non-FDG avid left lower lobe lung nodule and a 4 mm non-FDG avid left lower lobe lung nodule. Both of these were present on the last exam and are unchanged. 4. Mediastinal lymphadenopathy is likely related to the lung disease. 5. No evidence of hepatic, toribio or skeletal metastasis.
== END 2017-07-31 06:31 | disposition home or self-care (01) ==
LOC: PET 06:30
PROVIDERS: ATTEND Internal Medicine Hematology & Oncology
DX: C50.312 Malignant neoplasm of lower-inner quadrant of left female breast (principal); J44.9 Chronic obstructive pulmonary disease, unspecified; G47.30 Sleep apnea, unspecified; E11.9 Type 2 diabetes mellitus without complications; K21.9 Gastro-esophageal reflux disease without esophagitis; E78.00 Pure hypercholesterolemia, unspecified; I10 Essential (primary) hypertension; Z90.13 Acquired absence of bilateral breasts and nipples; Z90.49 Acquired absence of other specified parts of digestive tract; Z87.891 Personal history of nicotine dependence; Z85.3 Personal history of malignant neoplasm of breast
CPT/HCPCS: 78815; 82962; A9552

== ENCOUNTER 2020-03-02 06:14 | Outpatient (CLI) | payer MEDICARE ==
--- NOTE | 2020-03-02 09:47 | PET Report ---
PET/CT HISTORY: C50.312. Restaging of left breast cancer TECHNIQUE: The patient's fasting blood glucose was 136. The patient weighed 216 lbs. The patient w as injected with 15.5 mCi of FDG at 0635 hours and imaging was started at 0658 hours. The injection s ite was not provided by the technologist. The patient was imaged from the skull base to the thighs. A ll CT scans at this location are performed using CT dose reduction for ALARA by means of automated ex posure control. Images were reviewed on a workstation. COMPARISON: 07/31/2017 FINDINGS: IMAGED BRAIN: [Physiologic FDG uptake. NECK: Physiologic FDG uptake. CHEST WALL: Physiologic FDG uptake. Stable bilateral mastectomy changes. MEDIASTINUM: Physiologic FDG uptake. Stable mild cardiomegaly. LUNGS: Physiologic FDG uptake. Stable mild subpleural fibrotic changes in both lungs. Stable millime tric nodules in the left lower lobe. No suspicious pulmonary lesion. HEPATOBILIARY: Physiologic FDG uptake. PANCREAS: Physiologic FDG uptake. SPLEEN: Physiologic FDG uptake. KIDNEYS/BLADDER: Physiologic FDG uptake. ADRENAL GLANDS: Physiologic FDG uptake. GI/MESENTERY: Physiologic FDG uptake. PELVIC VISCERA: Physiologic FDG uptake. LYMPH NODES: Physiologic FDG uptake. OSSEOUS STRUCTURES: Physiologic FDG uptake. ADDITIONAL FINDINGS: Stable moderate sized periumbilical hernia containing fat.. IMPRESSION: Negative PET CT. Stable findings since 08/13/2018 exam. No evidence for disease recurrence or metasta sis. Signer Name: Robert Brady Jr, MD Signed: 03/02/2020 9:43 AM Workstation Name: [id number]
== END 2020-03-02 06:15 | disposition home or self-care (01) ==
LOC: PET 06:14
PROVIDERS: ATTEND Internal Medicine Hematology & Oncology
DX: C50.312 Malignant neoplasm of lower-inner quadrant of left female breast (principal); K42.9 Umbilical hernia without obstruction or gangrene; J94.1 Fibrothorax
CPT/HCPCS: 78815; 82962; A9552